=== PATIENT | male | born 1945 | race Hispanic/Latino ===

== ENCOUNTER 2016-11-05 06:08 | Day surgery (SDC) | payer MEDICARE ==
[2016-11-05 06:41] VITALS: BMI 29.2
[2016-11-05] MEDS ORDERED: Bupivacaine 0.5% Inj(30mL) ONE (07:22)
[2016-11-05] MEDS ORDERED: Lidocaine 1% Inj (20ml) ONE (07:28)
[2016-11-05] MEDS ORDERED: Propofol 10 mg/ml Inj (20 ML) ONE (07:28)
[2016-11-05] MEDS ORDERED: Lactated Ringer's 1,000 ML IV SCH (08:55)
[2016-11-05] MEDS ORDERED: HYDROmorphone 0.5 mg/0.5 ml ISec IVP PRN (08:55)
--- NOTE | 2016-11-05 09:53 | PCM.SURG1 ---
Surgeon's Initial Post Op Note - Surgeon's Notes Surgeon: Jaspal Sales Marketing Coordinator: PGY3, Buddy PGY1 Type of Anesthesia: General Endo Anesthesia Administered By: Quoc Pre-Operative Diagnosis: R inguinal hernia Operative Findings: Incarcerated R direct inguinal hernia Post-Operative Diagnosis: Incarcerated R direct inguinal hernia Operation Performed: R direct inguinal hernia with mesh Specimen/Specimens Removed: hernia sac, omentum Estimated Blood Loss: EBL {In ML}: 5 Blood Products Given: N/A Drains Used: No Drains Post-Op Condition: Good Date of Surgery/Procedure: 11/05/16 Time of Surgery/Procedure: 07:30
[2016-11-05 10:10] VITALS: RESP 18
[2016-11-05 11:10] VITALS: BP 157/88; PULSE 95; TEMP 98; O2SAT 97
--- NOTE | 2016-11-05 14:30 | OP ---
PROCEDURE DATE: 11/05/2016 ROOM: [facility]. SURGEON: Lv Shay M.D. COLLAR BASTER JUMPBASTING: Dr. Beatriz DO, PGY-2. SECOND WORKFORCE MANAGER: Axel Goodwin DO, PGY-1. SKILLED LABORER: Dr. Kumari. ANESTHESIA: General -- LMA -- Marcaine 0.5 -- 18 mL. PREOPERATIVE DIAGNOSES: 1. Incarcerated right inguinal hernia. 2. Prostate carcinoma. POSTOPERATIVE DIAGNOSES: Incarcerated right inguinal hernia with a large amount of omentum. PROCEDURES: 1. Right inguinal herniorrhaphy with mesh. 2. Omentectomy. OPERATIVE INDICATION: The patient is a 71-year-old male referred by Dr. Diego Newton for an incarcerated symptomatic right inguinal hernia. The patient has had a previous surgery in the past f or robotic prostate surgery and an uneventful neck lesion. The patient has no complications regardin g his bowel movements or increasing pain, but is incapacitated by the sore mass in his groin that castaneda s not reduce. Risks, benefits and their alternatives were discussed with the patient and his an d he signs the informed consent. He is advised for same day surgical procedure and both agree to thi s. OPERATIVE NOTE: The patient is brought to the operating room from the same day holding area. He is identified by his wrist band, undergoes timeout procedure, and is placed on the table in a supine man ner. Following the induction of general anesthesia, the intralaryngeal mask is inserted and sequenti al compression devices are placed on his lower extremities. The abdomen is electrically clipped. Th e previous site marked by the surgeon is identified by the circulating nurse and the patient is prepp ed with Hibiclens, chlorhexidine preparation. Following aseptic draping, incision is made transversely over the right inguinal canal. Sharp dissec tion is carried on through the subcutaneous tissues to the superficial fascia and subsequently to the external oblique aponeurosis below. Hemostasis is contained with electrocoagulating cautery current and the external oblique is incised from the external ring over the internal ring and elevated on Al lis clamps and a laminectomy retractor inserted, exposing the inguinal canal. The cord and structures are bluntly dissected free from a chronic scarred position, elevated on a Pen pa tape, opened and the content easily visualized. Within the hernia sac is a large amount of omentum that is adherent to the hernia sac and the attachm ents are cauterized and dissected free. Multiple attempts to return the omentum to the peritoneal ca vity were met with difficulty due to the small size of the hernia opening and it is elected at this p oint, after enlarging the opening, to transect the omentum with a Soraya clamp and 2-0 chromic catgut ligature. The omentum is submitted to pathology for gross examination only. With the omentum now transected, the remaining omental portion is able to pass into the peritoneal ca vity and a medium PerFix plug is placed into the peritoneal cavity and secured to the hernia sac with a pursestring 2-0 Prolene suture. The additional placement of a TA 30 across the hernia sac line is then performed and the hernia sac is transected over the staple line and submitted to pathology in [facility]. The inguinal angelica is closed with interrupted 2-0 Prolene sutures from the Marquis ligament and she lving portion of Poupart's ligament to the conjoint tendon. The cord is now returned to its normal p osition and the external oblique is closed with running 2-0 Polysorb suture and the superficial fasci a closed with interrupted 3-0 Polysorb suture. At this point, all layers of the abdominal wall are n ow infiltrated with long-acting bupivacaine, including the genitofemoral nerve at the pubic tubercle and the L1 dermatome radicular nerve at the anterior superior iliac spine. The skin, fascia and ingu inal angelica are also infiltrated for postoperative analgesic purposes. The subcutaneous space is now lavaged with saline, aspirated and closed with 3-0 Polysorb suture and the skin closed with the autosuture skin stapler. A dry dressing is applied. Attention is placed on the right testicle to position the cord in the inguinal canal in its proper position and the patient is then awakened, extubated and transported to the recovery room in a satisfactory condition. Spong e, instrument and suture count were verified as correct at the end of the procedure. Estimated blood loss during this procedure was less than 20 mL of blood. This dictation will be electronically signed without being read. The surgical assistants were present throughout the procedure from the beginning to the end and were very essential in exposing and assisting in placing the hernia repair at this time. Lv Shay MD cc: [id number] TT: 11/05/2016 14:30:31 laina
== END 2016-11-05 11:10 | disposition home or self-care (01) ==
LOC: SDS 06:08
PROVIDERS: ATTEND Surgery
DX: K40.30 Unilateral inguinal hernia, with obstruction, without gangrene, not specified as recurrent (principal); C61 Malignant neoplasm of prostate
CPT/HCPCS: 49505; 88302; 88305; J0690; J1170; J1885; J2405; J2704; J3010; J7120